=== PATIENT | female | born 1980 | race Caucasian/White ===

== ENCOUNTER 2023-03-07 09:05 | Outpatient (CLI) | payer OTHER, SELFPAY ==
--- NOTE | 2023-03-07 09:15 | CRLHL7_ITS ---
For Patients: As a result of the Century Cures Act, medical imaging exams and procedure reports are released immediately into your electronic medical record. You may view this report before your referring provider. If you have questions, please contact your health care provider. Technique: Double-contrast esophagram performed after the uneventful administration of effervescent crystals and thick barium followed by thin barium. Fluoroscopy time 56 seconds. Indication: EOSINOPHILIC ESOPHAGITIS Comparison: None. Findings: Esophagus: Normal morphology and motility. No stricture or mass. Gastroesophageal reflux: None. Gallbladder absent. Normal appearance of the stomach. No hiatal hernia. Impression: Normal double-contrast esophagram. Dictated by Bryant Rosenbaum MD @ 03/07/2023 1:16:35 PM (Electronically Signed)
== END 2023-03-07 09:06 | disposition home or self-care (01) ==
LOC: RAD 09:06
PROVIDERS: PCP Family Medicine; Visit Provider Internal Medicine Gastroenterology
DX: K20.0 Eosinophilic esophagitis (principal); K21.9 Gastro-esophageal reflux disease without esophagitis; R10.13 Epigastric pain
CPT/HCPCS: 74221

== ENCOUNTER 2024-05-26 14:03 | Outpatient (CLI) | payer OTHER, SELFPAY | END 2024-05-26 14:04 | disposition home or self-care (01) | LOC: NFLDUCREF 14:03 | PROVIDERS: PCP Family Medicine; Visit Provider Nurse Practitioner Family | DX: R30.0 Dysuria (principal) | CPT/HCPCS: 87086 ==

== ENCOUNTER 2024-09-02 08:30 | Outpatient (RCR) | payer OTHER, SELFPAY | END 2024-12-03 07:31 | disposition home or self-care (01) | PROVIDERS: PCP Family Medicine; Visit Provider Orthopaedic Surgery | DX: M76.892 Other specified enthesopathies of left lower limb, excluding foot (principal); M76.891 Other specified enthesopathies of right lower limb, excluding foot; M25.561 Pain in right knee; M25.562 Pain in left knee; G89.29 Other chronic pain; Z51.89 Encounter for other specified aftercare | CPT/HCPCS: 97110; 97112; 97162; 97530 ==